=== PATIENT | female | born 1990 | race Caucasian/White ===

== ENCOUNTER 2017-10-16 15:24 | Emergency (ER) | payer BC ==
--- NOTE | 2017-10-16 16:54 | ED ---
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 Onset just today. 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 She denies fever, chills. She has had mild runny nose and cough. - History of Current Complaint Chief Complaint: UCRespiratory Time Seen by Provider: 10/16/17 16:32 - Allergies/Home Medications Allergies/Adverse Reactions: Allergies Allergy/AdvReac Type Severity Reaction Status Date / Time No Known Allergies Allergy Verified 10/16/17 16:28 Home Medications: Home Medications Ibuprofen TAB* [Motrin TAB* 600 MG] 600 mg PO Q6H PRN 10/16/17 [History Confirmed 10/16/17] Levonorgestrel (Iud) [Mirena IUD] 20 mcg IU ONCE 10/16/17 [History Confirmed ] Minocycline (NF) 50 mg PO DAILY 10/16/17 [History Confirmed 10/16/17] PMH/Surg Hx/FS Hx/Imm Hx Previously Healthy: Yes - Surgical History Hx Anesthesia Reactions: No Infectious Disease History: No Infectious Disease History: Denies: Traveled Outside the [place] in Last 30 Days - Family History Known Family History: Positive: None - Social History Occupation: Employed Full-time Alcohol Use: Rare Substance Use Type: Reports: None Smoking Status (MU): Never Smoked Tobacco Review of Systems Constitutional: Negative Positive: Sore Throat Positive: Other - left knee pain All Other Systems Reviewed And Are Negative: Yes Physical Exam Triage Information Reviewed: Yes Vital Signs On Initial Exam: Initial Vitals Temp Pulse Resp BP Pulse Ox 98 F 63 16 108/64 100 10/16/17 16:25 10/16/17 16:25 10/16/17 16:25 10/16/17 16:25 10/16/17 16:25 Vital Signs Reviewed: Yes Appearance: Positive: Well-Appearing, No Pain Distress, Well-Nourished Skin: Positive: Warm, Skin Color Reflects Adequate Perfusion Head/Face: Positive: Normal Head/Face Inspection Eyes: Positive: EOMI Neck: Positive: Supple, Nontender Respiratory/Lung Sounds: Positive: Clear to Auscultation, Breath Sounds Present Cardiovascular: Positive: RRR. Negative: Murmur Diagnostics - Vital Signs Vital Signs Temp Pulse Resp BP Pulse Ox 10/16/17 16:25 98 F 63 16 108/64 100 - Laboratory Lab Results: Lab Results 10/16/17 Range/Units 16:34 Group A Strep Rapid Negative (Negative) Lab Statement: Any lab studies that have been ordered have been reviewed, and results considered in the medical decision making process. EENT Course/Dx - Course Course Of Treatment: 26 yr old female with the complaint of sore throat. Will get rapid strep. It is negative. DC home with uri - Diagnoses Provider Diagnoses: URI (upper respiratory infection) Discharge - Discharge Plan Condition: Good Disposition: HOME Patient Education Materials: Pharyngitis (ED), Upper Respiratory Infection (ED) Referrals: Karen Weiss PA [Primary Care Provider] - 2 Days
== END 2017-10-16 17:01 | disposition home or self-care (01) ==
LOC: UCCORT 15:24
DX: J06.9 Acute upper respiratory infection, unspecified (principal); M25.562 Pain in left knee
CPT/HCPCS: 87651; 99201; G0463